=== PATIENT | male | born 1980 | race African-American/Black ===

== ENCOUNTER 2017-05-10 09:52 | Emergency (ER) | payer BC ==
[~2017-05-10] VITALS: Ht 170.2 cm; Wt 60.0 kg
[~2017-05-10 09:52] MED LIST: IBUP600T26 PO; NEUR100C PO; XANA0.5T PO
[2017-05-10 09:54] VITALS: BP 135/77; PULSE 105; RESP 20; TEMP 99.5; O2SAT 98
[2017-05-10 10:10] VITALS: PULSE 95; RESP 16; TEMP 98.9; O2SAT 96
[2017-05-10] MEDS ORDERED: GABA300C5 PO (10:11)
[2017-05-10] MEDS ORDERED: ALPR.5 PO (10:11)
--- NOTE | 2017-05-10 10:31 | PD ---
Data Data Last Documented VS Vital Signs Date Time Temp Pulse Resp B/P (MAP) Pulse Ox O2 Delivery O2 Flow Rate FiO2 05/10/17 10:10 98.9 95 16 96 Room Air MDM Supervised Visit with [facility]: Yes Narrative Course The history, exam, and medical decision-making in the associated resident provider note were completed with my assistance. I reviewed and agree with the findings presented. I attest that I had a [id number] encounter with the patient on the same day, and personally performed and documented my assessment and findings in the medical record. *My assessment and Findings: 36-year-old man with left leg erythema warmth or redness. States he fell on it yesterday. Is been draining clear fluid from a small wound on the inferior aspect of the knee. He is in pain of range of motion. On exam his superficial erythema and redness with some tenderness throughout the knee extending a few centimeters proximally and distally from the knee. There is no obvious knee effusion or evidence of arthritis. He can bend the knee. There is no calf swelling or edema or evidence of DVT. Recommend treatment for cellulitis. Diagnosis Primary Impression: Left leg cellulitis Disposition: 01 DISCHARGE HOME Condition: Stable Keaton Aguilar MD May 10, 2017 10:31
--- NOTE | 2017-05-10 10:35 | PD ---
HPI Chief Complaint: Skin Problem Time Seen by Provider: 10:10 Travel History International Travel<30 days: No Contact w/Intl Traveler<30days: No Traveled to known affect area: No History of Present Illness HPI Mr. Richard is a 36yo AAM presenting today after he fell yesterday. He states that he was walking and fell on the toilet in his knee hit the sidewalk. He states that his heart to walk. He has tried hot compresses and cleaning the wound. He states that this morning swelling started leaking out pus. He says that the pain radiates up to his thigh and down his leg to his foot. PFSH Past Medical History Autoimmune Disease: Yes (FIBROMYALGIA) Blood Disorders: No Anxiety: Yes Diminished Hearing: No Fibromyalgia: Yes Musculoskeletal: Yes (FIBROMYALGIA) Immunizations Current: Yes Tetanus Vaccination: > 5 Years Influenza Vaccination: No Past Surgical History Surgical History: No Previous Surgery Social History Alcohol Use: Yes (OCCASSIONAL 2 X PER MONTH) Tobacco Use: No Substance Use: No Allergies-Medications (Allergen,Severity, Reaction): Coded Allergies: Sulfa (Sulfonamide Antibiotics) (Unverified Allergy, Severe, HIVES, SWELLING, 05/10/17) penicillin G (Unverified Allergy, Severe, UNKNOWN, 05/10/17) Reported Meds & Prescriptions Reported Meds & Active Scripts Active Reported Gabapentin 300 Mg Cap 300 Mg PO TID Xanax (Alprazolam) 0.5 Mg Tab 0.5 Mg PO BID PRN Review of Systems General / Constitutional: No: Fever, Chills Physical Exam Narrative GENERAL: Well-nourished, well-developed patient. SKIN: Warm and dry. HEAD: Normocephalic. EYES: No scleral icterus. No injection or drainage. CARDIOVASCULAR: Regular rate and rhythm without murmurs, gallops, or rubs. RESPIRATORY: Breath sounds equal bilaterally. No accessory muscle use. EXTREMITIES: No cyanosis, or edema. Right le.5cmx0.5cm laceration leaking serosanguineous fluid. Surrounding erythema and warmth. NEUROLOGICAL: Awake, alert, and oriented x 3. Non-focal. Data Data Last Documented VS Vital Signs Date Time Temp Pulse Resp B/P (MAP) Pulse Ox O2 Delivery O2 Flow Rate FiO2 05/10/17 10:10 98.9 95 16 96 Room Air Orders Orders Wound Culture And Gram Stain (05/10/17 10:31) Ketorolac Inj (Toradol Inj) (05/10/17 10:45) MDM Medical Decision Making Medical Screen Exam Complete: Yes Emergency Medical Condition: Yes Differential Diagnosis cellulitis vs laceration vs septic arthritis Narrative Course 36yoAAM presenting to the ED after a fall resulting in a right knee laceration. Physical exam shows cellulitis. Wound cx Rx for Bactrim Toradol for pain Diagnosis Primary Impression: Left leg cellulitis Referrals: Primary Care Physician Patient Instructions: Cellulitis (ED), General Instructions Additional Instructions: Take medications as prescribed. Return if any worsening symptoms. Take probiotics with medication. Med/Other Pt SpecificInfo: Prescription(s) given Scripts Clindamycin (Clindamycin) 150 Mg Cap 150 MG PO Q6H for Infection for 7 Days, #28 CAP 0 Refills Prov: Stacy Agudelo MD R1 05/10/17 Disposition: 01 DISCHARGE HOME Condition: Stable Stacy Agudelo MD R1 May 10, 2017 10:35
[2017-05-10] MEDS ORDERED: CLIN1CAP5 PO (10:45)
[2017-05-10] MEDS ORDERED: KETOROLAC TROMETHAMINE 60 MG/2 ML (IM) VIAL IM ONE (11:00)
== END 2017-05-10 11:08 | disposition home or self-care (01) ==
LOC: NEPD 09:52
DX: L03.116 Cellulitis of left lower limb (principal); A49.02 Methicillin resistant Staphylococcus aureus infection, unspecified site; M79.7 Fibromyalgia; F41.9 Anxiety disorder, unspecified; Z79.899 Other long term (current) drug therapy; Z88.0 Allergy status to penicillin; Z88.2 Allergy status to sulfonamides
CPT/HCPCS: 86403; 87070; 87186; 96372; 99284; J1885

== ENCOUNTER 2017-05-12 19:35 | Emergency (ER) | payer BC ==
[~2017-05-12] VITALS: Ht 170.2 cm; Wt 72.4 kg
[~2017-05-12 19:35] MED LIST changes: +ALPR.5 PO; +CLIN1CAP5 PO; +GABA300C5 PO; -IBUP600T26 PO; -NEUR100C PO; -XANA0.5T PO
[2017-05-12 19:46] VITALS: BP 129/76; PULSE 89; RESP 18; TEMP 98; O2SAT 99
[2017-05-12] MEDS ORDERED: CLIN1CAP6 PO (21:35)
--- NOTE | 2017-05-12 21:37 | PD ---
HPI . Right knee pain and wound Chief Complaint: Fall Time Seen by Provider: 20:50 Travel History International Travel<30 days: No Contact w/Intl Traveler<30days: No Traveled to known affect area: No History of Present Illness HPI 36-year-old male patient presents to the emergency department for evaluation of right leg wound. Patient states he fell earlier in the shower and it opened the wound up more. There are no obvious injuries from the fall. The patient does have pain in his knee from the wound but there is no signs of trauma post fall. The patient can fully flex and extend the knee. The wound is approximately 2 cm x 2 cm, clearly infected draining pus and purulent discharge. Patient denies any fevers, chills, malaise, abdominal pain, nausea, vomiting, diarrhea or lightheadedness. The patient was seen at our facility for couple days ago and discharged home with clindamycin. The wound culture that was obtained a couple days ago was positive for MRSA. The MRSA is sensitive to clindamycin however the patient's dose is subtherapeutic at this time. Patient's only major medical history is fibromyalgia. Patient is on extensive pain medication regimen including Lortab, Xanax, gabapentin, Motrin. Patient is having frequent falls at home. Patient advised to using caution when taking the pain medications as this could be directly related to his frequent falls. PFSH Past Medical History Autoimmune Disease: Yes (FIBROMYALGIA) Blood Disorders: No Anxiety: Yes Diminished Hearing: No Fibromyalgia: Yes Musculoskeletal: Yes (FIBROMYALGIA) Immunizations Current: Yes Social History Alcohol Use: Yes (OCCASSIONAL 2 X PER MONTH) Tobacco Use: No Substance Use: No Allergies-Medications (Allergen,Severity, Reaction): Coded Allergies: penicillin G (Unverified Allergy, Severe, UNKNOWN, 05/12/17) Reported Meds & Prescriptions Reported Meds & Active Scripts Active Clindamycin (Clindamycin HCl) 300 Mg Cap 300 Mg PO Q6H 10 Days Clindamycin (Clindamycin HCl) 150 Mg Cap 150 Mg PO Q6H 7 Days Review of Systems Except as stated in HPI: all other systems reviewed are Neg Physical Exam Narrative GENERAL: Well-nourished, well-developed 36-year-old male patient in no acute distress. Nontoxic appearing. SKIN: 2 cm x 2cm right knee wound that is oozing pus and purulent drainage. Slightly edematous and erythematous. HEAD: Normocephalic. Atraumatic. EYES: No scleral icterus. No injection or drainage. NECK: Supple, trachea midline. No JVD or lymphadenopathy. CARDIOVASCULAR: Regular rate and rhythm without murmurs, gallops, or rubs. Pedal pulses +2 bilaterally. RESPIRATORY: Breath sounds equal bilaterally. No accessory muscle use. GASTROINTESTINAL: Abdomen soft, non-tender, nondistended. MUSCULOSKELETAL: No obvious deformity or effusion on the right leg. BACK: Nontender without obvious deformity. No CVA tenderness. Data Data Last Documented VS Vital Signs Date Time Temp Pulse Resp B/P (MAP) Pulse Ox O2 Delivery O2 Flow Rate FiO2 05/12/17 19:46 98.0 89 18 129/76 (93) 99 MDM Medical Decision Making Medical Screen Exam Complete: Yes Emergency Medical Condition: Yes Medical Record Reviewed: Yes Differential Diagnosis Differential diagnoses include not limited to wound infection, cellulitis, right knee contusion, sepsis Narrative Course 36-year-old male patient presents to emergency room for evaluation of wound on his right knee. The wound is currently infected oozing pus and purulent drainage. Patient denies any fevers, chills, malaise, nausea, vomiting, lightheadedness. The right knee is slightly edematous and erythematous. Patient retains full range of motion with flexion and extension. A wound culture was obtained at his last visit from that wound that grew MRSA. MRSA is susceptible to clindamycin however the patient is on a subtherapeutic level at this time. Patient will be discharged home with an increased dose of clindamycin and instructions to return to the emergency Department with any worsening infection. Diagnosis Primary Impression: Open wound of right knee Qualified Codes: S81.001A - Unspecified open wound, right knee, initial encounter Referrals: Primary Care Physician Patient Instructions: General Instructions, Wound Infection (ED) Additional Instructions: Please return to emergency department if your symptoms worsen or you have any signs or symptoms of increasing infection. Signs or symptoms of infection include redness, warmth, increasing pain and fevers. Follow up with your primary care provider. Take antibiotics as prescribed. Keep wound clean and dry. Med/Other Pt SpecificInfo: Prescription(s) given Scripts Clindamycin (Clindamycin) 300 Mg Cap 300 MG PO Q6H for Infection for 10 Days, #40 CAP 0 Refills Prov: Yesi Law 05/12/17 Disposition: 01 DISCHARGE HOME Condition: Stable Yesi Law May 12, 2017 21:37
== END 2017-05-12 22:05 | disposition home or self-care (01) ==
LOC: PHEFT 19:35
DX: S81.001A Unspecified open wound, right knee, initial encounter (principal); M79.7 Fibromyalgia; F41.9 Anxiety disorder, unspecified; W18.2XXA Fall in (into) shower or empty bathtub, initial encounter; Z79.899 Other long term (current) drug therapy; Z88.0 Allergy status to penicillin
CPT/HCPCS: 99283

== ENCOUNTER 2017-06-16 00:14 | Emergency (ER) | payer BC ==
[~2017-06-16] VITALS: Ht 170.2 cm; Wt 77.0 kg
[~2017-06-16 00:14] MED LIST changes: -ALPR.5 PO; +CLIN150C14 PO; -CLIN1CAP5 PO; +CLIN300C5 PO; -GABA300C5 PO
[2017-06-16 00:16] VITALS: BP 119/76; PULSE 84; RESP 16; TEMP 98.6; O2SAT 98
[2017-06-16] MEDS ORDERED: NEUR300C PO (00:51)
[2017-06-16] MEDS ORDERED: IBUP-232 PO (01:19)
--- NOTE | 2017-06-16 01:19 | PD ---
HPI Chief Complaint: Head Injury Time Seen by Provider: 01:00 Travel History International Travel<30 days: No Contact w/Intl Traveler<30days: No Traveled to known affect area: No History of Present Illness HPI 36-year-old male complains of headache. Patient was weight lifting and the handlebar of the weight came down and hit him on the forehead. Patient denies any loss of consciousness. Patient complains of achy headache frontal head. Patient denies any visual change. Patient denies any neck pain. Patient denies any chest pain or shortness of breath. Patient denies abdominal pain. Patient denies any focal weakness or numbness of extremity. Patient denies any other injury. Patient is on Neurontin for fibromyalgia. PFSH Past Medical History Autoimmune Disease: Yes (FIBROMYALGIA) Blood Disorders: No Anxiety: Yes Diminished Hearing: No Fibromyalgia: Yes Musculoskeletal: Yes (FIBROMYALGIA) Immunizations Current: Yes Past Surgical History Surgical History: No Previous Surgery Social History Alcohol Use: Yes (OCCASSIONAL 2 X PER MONTH) Tobacco Use: No Substance Use: No Allergies-Medications (Allergen,Severity, Reaction): Coded Allergies: penicillin G (Unverified Allergy, Severe, UNKNOWN, 06/16/17) Reported Meds & Prescriptions Reported Meds & Active Scripts Active Ibuprofen 600 Mg Tab 600 Mg PO TID Reported Neurontin (Gabapentin) 300 Mg Cap 300 Mg PO TID Review of Systems General / Constitutional: No: Fever Eyes: No: Visual changes HENT: Positive: Headaches Cardiovascular: No: Chest Pain or Discomfort Respiratory: No: Shortness of Breath Gastrointestinal: No: Abdominal Pain Genitourinary: No: Dysuria Musculoskeletal: No: Pain Skin: No Rash Neurologic: No: Weakness Psychiatric: No: Depression Endocrine: No: Polydipsia Hematologic/Lymphatic: No: Easy Bruising Physical Exam Narrative GENERAL: Well-nourished, well-developed patient. SKIN: Focused skin assessment warm/dry. HEAD: Normocephalic. EYES: No scleral icterus. No injection or drainage. Pupils 2 mm equal reactive. NECK: Supple, trachea midline. No JVD or lymphadenopathy. CARDIOVASCULAR: Regular rate and rhythm without murmurs, gallops, or rubs. RESPIRATORY: Breath sounds equal bilaterally. No accessory muscle use. GASTROINTESTINAL: Abdomen soft, non-tender, nondistended. MUSCULOSKELETAL: No cyanosis, or edema. BACK: Nontender without obvious deformity. No CVA tenderness. Neurologic exam normal. Data Data Last Documented VS Vital Signs Date Time Temp Pulse Resp B/P (MAP) Pulse Ox O2 Delivery O2 Flow Rate FiO2 06/16/17 00:16 98.6 84 16 119/76 (90) 98 Room Air Orders Orders Ct Brain W/O Iv Contrast(Rout) (06/16/17 01:12) Ed Discharge Order (06/16/17 03:01) MDM Medical Decision Making Medical Screen Exam Complete: Yes Emergency Medical Condition: Yes Interpretation(s) [address] scan of brain negative acute pathology. Differential Diagnosis Differential diagnosis including contusion, concussion, skull fracture, intracranial hemorrhage. Narrative Course 36-year-old male complains of headache after being struck with the handlebar of the weight lifting equipment. Diagnosis Primary Impression: Closed head injury Qualified Codes: S09.90XA - Unspecified injury of head, initial encounter Patient Instructions: General Instructions Additional Instructions: Head trauma instructions given. Ibuprofen as needed for headache. Follow-up with personal physician. Return if worse. Med/Other Pt SpecificInfo: Prescription(s) given Scripts Ibuprofen (Ibuprofen) 600 Mg Tab 600 MG PO TID for Headaches, #30 TAB 0 Refills Prov: Zack Croft MD 06/16/17 Disposition: 01 DISCHARGE HOME Condition: Stable Zack Croft MD Jun 16, 2017 01:19
--- NOTE | 2017-06-16 03:00 | RADRPT ---
EXAM DATE/TIME: 06/16/2017 01:48 [facility] COMPARISON: No previous studies available for comparison. INDICATIONS : Trauma, patient hit in head with weight bar. Cephalgia. RADIATION DOSE: 56.35 CTDIvol (mGy) MEDICAL HISTORY : None SURGICAL HISTORY : None. ENCOUNTER: Initial ACUITY: 1 day PAIN SCALE: 9/10 LOCATION: cranial TECHNIQUE: Multiple contiguous axial images were obtained of the head. Using automated exposure control and adj ustment of the mA and/or kV according to patient size, radiation dose was kept as low as reasonably a chievable to obtain optimal diagnostic quality images. DICOM format image data is available electro nically for review and comparison. FINDINGS: CEREBRUM: The ventricles are normal for age. No evidence of midline shift, mass lesion, hemorrhage or acute in farction. No extra-axial fluid collections are seen. POSTERIOR FOSSA: The cerebellum and brainstem are intact. The 4th ventricle is midline. The cerebellopontine angle i s unremarkable. EXTRACRANIAL: The visualized portion of the orbits is intact. SKULL: The calvaria is intact. No evidence of skull fracture. CONCLUSION: 1. No evidence of acute intracranial pathology. No masses are identified. Tab Bird MD on June 16, 2017 at 2:58 Board Certified Radiologist. This report was verified electronically.
== END 2017-06-16 03:08 | disposition home or self-care (01) ==
LOC: NEPE 00:14
DX: S09.90XA Unspecified injury of head, initial encounter (principal); M79.7 Fibromyalgia; F41.9 Anxiety disorder, unspecified; W22.8XXA Striking against or struck by other objects, initial encounter; Y93.B3 Activity, free weights; Z88.0 Allergy status to penicillin; Z79.1 Long term (current) use of non-steroidal anti-inflammatories (NSAID); Z79.899 Other long term (current) drug therapy
CPT/HCPCS: 70450; 99284

== ENCOUNTER 2017-07-05 20:22 | Emergency (ER) | payer BC ==
[~2017-07-05] VITALS: Ht 170.2 cm; Wt 72.2 kg
[~2017-07-05 20:22] MED LIST changes: -CLIN150C14 PO; -CLIN300C5 PO; +IBUP-232 PO; +NEUR300C PO
[2017-07-05 20:27] VITALS: BP 122/75; PULSE 98; RESP 18; TEMP 99; O2SAT 98
[2017-07-05 20:41] VITALS: BP 119/76; PULSE 87; O2SAT 98
[2017-07-05] MEDS ORDERED: ONDANSETRON ODT 4 MG TAB PO ONE (20:45)
--- NOTE | 2017-07-05 20:47 | PD ---
HPI Chief Complaint: Head Injury Time Seen by Provider: 20:40 Travel History International Travel<30 days: No Contact w/Intl Traveler<30days: No Traveled to known affect area: No History of Present Illness HPI 36-year-old male presents to the emergency department by private transportation for complaint of headache since being hit in the head earlier today around 10 AM by a basketball. Patient states she was actively playing basketball and the ball struck him in the head knocking him to the ground. Patient states she did not hit his head on the ground did not have loss of consciousness did not injure his neck or his back. Patient does not report any new numbness tingling or weakness of the upper extremities or lower extremity. No report of bladder or bowel dysfunction. No report of ataxia of gait. Patient states he was stunned when he was first hit in the head with a basketball. Patient states that he's had nausea throughout the day. Patient did take a one-time dose of ibuprofen without symptom relief. Patient's had no vomiting. Patient denies other concerns or complaints. No reported recent respiratory illness or febrile illness. Patient states he takes medication for fibromyalgia but does not report any new back pain or back injury or extremity symptoms. The patient rates his head pain 10 over 10 in intensity. PFSH Past Medical History Narrative Medical Fibromyalgia chronic low back pain anxiety; no tobacco use, alcohol use; nursing notes reviewed Autoimmune Disease: Yes (FIBROMYALGIA) Blood Disorders: No Anxiety: Yes Diminished Hearing: No Fibromyalgia: Yes Musculoskeletal: Yes (FIBROMYALGIA) Immunizations Current: Yes Social History Alcohol Use: Yes (OCCASSIONAL 2 X PER MONTH) Tobacco Use: No Substance Use: No Allergies-Medications (Allergen,Severity, Reaction): Coded Allergies: penicillin G (Unverified Allergy, Severe, UNKNOWN, 07/05/17) Reported Meds & Prescriptions Reported Meds & Active Scripts Active Ibuprofen 600 Mg Tab 600 Mg PO TID Reported Neurontin (Gabapentin) 300 Mg Cap 300 Mg PO TID Review of Systems Except as stated in HPI: all other systems reviewed are Neg General / Constitutional: No: Fever, Chills Eyes: No: Diploplia, Blurred Vision, Photophobia HENT: Positive: Headaches, Lightheadedness, No: Neck Stiffness, Neck Pain Cardiovascular: No: Chest Pain or Discomfort Respiratory: No: Shortness of Breath Gastrointestinal: Positive: Nausea, No: Vomiting, Abdominal Pain Genitourinary: No: Flank Pain Musculoskeletal: No: Myalgias, Arthralgias Skin: No Rash Neurologic: Positive: Headache, No: Weakness, Dizziness, Syncope, Focal Abnormalities, Coordination Problem, Change in Mentation, Slurred Speech Psychiatric: No: Anxiety Hematologic/Lymphatic: No: Lymph Node Enlargement Physical Exam Narrative GENERAL: Well-developed well-nourished male in no acute distress no respiratory distress; GCS 15 SKIN: Warm and dry. HEAD: Atraumatic. Normocephalic. No forehead soft tissue swelling abrasion ecchymosis or imprinting of basketball markings. EYES: Pupils equal and round. Extraocular muscles intact. No periorbital rim tenderness or ecchymosis. No scleral icterus. No injection or drainage. ENT: No nasal bleeding or discharge. Mucous membranes pink and moist. Airway is patent. No hemotympanum. NECK: Trachea midline. No JVD. No midline tenderness to direct palpation along the cervical spine and no bony step-off. No paracervical musculature spasm or tenderness. CARDIOVASCULAR: Regular rate and rhythm. RESPIRATORY: No accessory muscle use. Clear to auscultation. Breath sounds equal bilaterally. GASTROINTESTINAL: Abdomen soft, non-tender, nondistended. Hepatic and splenic margins not palpable. MUSCULOSKELETAL: Extremities without clubbing, cyanosis, or edema. No obvious deformities. NEUROLOGICAL: Awake and alert. GCS 15. No obvious cranial nerve deficits. Motor grossly within normal limits. Five out of 5 muscle strength in the arms and legs. Sensory exam intact. DTRs 2+ and equal bilateral upper extremity lower extremities. Normal speech. PSYCHIATRIC: Appropriate mood and affect; insight and judgment normal. Data Data Last Documented VS Vital Signs Date Time Temp Pulse Resp B/P (MAP) Pulse Ox O2 Delivery O2 Flow Rate FiO2 07/05/17 20:41 87 119/76 (90) 98 Room Air 07/05/17 20:27 99.0 18 Orders Orders Ondansetron Odt (Zofran Odt) (07/05/17 20:45) Ct Brain W/O Iv Contrast(Rout) (07/05/17 ) MDM Medical Decision Making Medical Screen Exam Complete: Yes Emergency Medical Condition: Yes Medical Record Reviewed: Yes (evaluated 06/16/17 head injury from weight lifting --CT brain w/o: "negative") Interpretation(s) CT brain w/o: FINDINGS: CEREBRUM: The ventricles are normal for age. No evidence of midline shift, mass lesion, hemorrhage or acute infarction. No extra-axial fluid collections are seen. POSTERIOR FOSSA: The cerebellum and brainstem are intact. The 4th ventricle is midline. The cerebellopontine angle is unremarkable. EXTRACRANIAL: The visualized portion of the orbits is intact. SKULL: The calvaria is intact. No evidence of skull fracture. CONCLUSION: Negative exam. Mike Bell MD on July 05, 2017 at 21:03 Board Certified Radiologist. This report was verified electronically. Differential Diagnosis Contusion, ICH, CHI, concussion, skull fracture, viral syndrome Narrative Course 36-year-old male presents 10 hours after being hit in the head with a basketball without loss of consciousness or secondary head injury from fall without neck or extremity numbness tingling or weakness. Patient does present with complaint of nausea and administered Zofran ODT 4 mg times one dose and a CT brain noncontrast has been ordered. @ 9:11 PM patient reports that his headache and nausea have improved significantly after Zofran ODT 4 mg times one dose; patient has been informed of his CT brain noncontrast imaging using results revealing no acute process. Patient is stable for outpatient management and will be provided prescription for Zofran take as needed for nausea. Patient is encouraged to follow closed head injury precautions 24 hours. Patient is encouraged to take increase fluid hydration and is tolerating oral hydration here in the emergency department without nausea and/or vomiting or worsening headache pain. Patient admits to poor oral intake today as he did not feel well. Patient may have some mild dehydration due to decreased oral intake today. Diagnosis Primary Impression: Closed head injury Qualified Codes: S09.90XA - Unspecified injury of head, initial encounter Referrals: Primary Care Physician 2 days Patient Instructions: General Instructions Departure Forms: Tests/Procedures, Work Release Special Instructions: no work x 1 day Additional Instructions: Increase fluid hydration Follow head injury precautions 24 hours No work times one day Takes Zofran as prescribed as needed for nausea and/or vomiting May take ibuprofen/Advil/Motrin 600 mg as often as every 6 hours or up to 800 mg as often as every 8 hours avoid prolonged high-dose ibuprofen use on a routine basis Return to the emergency department for any concerns or change in condition Follow up with your primary care provider call office in a.m. to schedule follow -up appointment Med/Other Pt SpecificInfo: Prescription(s) given Scripts Ondansetron Odt (Zofran Odt) 4 Mg Tab 4 MG SL Q6HR Y for Nausea/Vomiting, #7 TAB 0 Refills Prov: Tanja Sims MD 07/05/17 Disposition: 01 DISCHARGE HOME Condition: Stable Tanja Sims MD Jul 05, 2017 20:47
--- NOTE | 2017-07-05 21:08 | RADRPT ---
EXAM DATE/TIME: 07/05/2017 20:46 [facility] COMPARISON: CT BRAIN W/O CONTRAST, June 16, 2017, 1:48. INDICATIONS : Trauma, hit in head with basketball. RADIATION DOSE: 65.94 CTDIvol (mGy) MEDICAL HISTORY : None SURGICAL HISTORY : None. ENCOUNTER: Initial ACUITY: 1 day PAIN SCALE: 10/10 LOCATION: cranial TECHNIQUE: Multiple contiguous axial images were obtained of the head. Using automated exposure control and adj ustment of the mA and/or kV according to patient size, radiation dose was kept as low as reasonably a chievable to obtain optimal diagnostic quality images. DICOM format image data is available electro nically for review and comparison. FINDINGS: CEREBRUM: The ventricles are normal for age. No evidence of midline shift, mass lesion, hemorrhage or acute in farction. No extra-axial fluid collections are seen. POSTERIOR FOSSA: The cerebellum and brainstem are intact. The 4th ventricle is midline. The cerebellopontine angle i s unremarkable. EXTRACRANIAL: The visualized portion of the orbits is intact. SKULL: The calvaria is intact. No evidence of skull fracture. CONCLUSION: Negative exam. Mike Bell MD on July 05, 2017 at 21:03 Board Certified Radiologist. This report was verified electronically.
[2017-07-05 21:12] VITALS: RESP 16; TEMP 98.6; O2SAT 97
[2017-07-05] MEDS ORDERED: ZOFR4TAB3 SL (21:14)
== END 2017-07-05 21:30 | disposition home or self-care (01) ==
LOC: PHED 20:22
DX: S09.90XA Unspecified injury of head, initial encounter (principal); W21.05XA Struck by basketball, initial encounter; Y93.67 Activity, basketball
CPT/HCPCS: 70450; 99284

== ENCOUNTER 2017-07-13 18:16 | Emergency (ER) | payer OTHER, BC ==
[~2017-07-13] VITALS: Ht 170.2 cm; Wt 73.6 kg
[~2017-07-13 18:16] MED LIST changes: +ZOFR4TAB3 SL
[2017-07-13 18:28] VITALS: BP 117/68; PULSE 81; RESP 16; TEMP 98.5; O2SAT 99
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
[2017-07-13] MEDS ORDERED: ACETAMINOPHEN 325 MG TAB PO ONE (19:30)
[2017-07-13] MEDS ORDERED: IBUPROFEN 800 MG TAB PO ONE (19:30)
[2017-07-13] MEDS ORDERED: IBUP1TAB7 PO (19:35)
[2017-07-13] MEDS ORDERED: CYCL10TA PO (19:35)
== END 2017-07-13 19:48 | disposition home or self-care (01) ==
LOC: PHEFT 18:16
DX: S16.1XXA Strain of muscle, fascia and tendon at neck level, initial encounter (principal); S39.012A Strain of muscle, fascia and tendon of lower back, initial encounter; V43.52XA Car driver injured in collision with other type car in traffic accident, initial encounter
CPT/HCPCS: 70450; 72110; 72125; 99285

== ENCOUNTER 2017-08-29 19:56 | Emergency (ER) | payer BC, OTHER ==
[~2017-08-29 19:56] MED LIST changes: +CYCL10TA PO; -IBUP-232 PO; +IBUP1TAB7 PO; -NEUR300C PO; -ZOFR4TAB3 SL
[2017-08-29 20:31] VITALS: BP 114/67; PULSE 74; RESP 20; TEMP 98.1; O2SAT 98
[2017-08-29] MEDS ORDERED: NEUR100C PO (22:11)
[2017-08-29] MEDS ORDERED: diphenhydrAMINE HCL 50 MG CAP PO ONE (22:15)
[2017-08-29] MEDS ORDERED: EPIP0.3I IM (22:38)
--- NOTE | 2017-08-29 22:39 | PD ---
HPI . Wasp sting Chief Complaint: Bite or Sting Time Seen by Provider: 22:08 Travel History International Travel<30 days: No Contact w/Intl Traveler<30days: No Traveled to known affect area: No History of Present Illness HPI This patient presents status post a wasp sting to his right upper arm. Onset was this morning. He subsequently developed diffuse hives. He rates his symptoms at 4/10. There are no associated symptoms. There has been no treatment prior to arrival. However, his symptoms are spontaneously improving. PFSH Past Medical History Autoimmune Disease: Yes (FIBROMYALGIA) Blood Disorders: No Anxiety: Yes Diminished Hearing: No Fibromyalgia: Yes Musculoskeletal: Yes (FIBROMYALGIA) Immunizations Current: Yes Tetanus Vaccination: < 5 Years Influenza Vaccination: Yes Past Surgical History Surgical History: No Previous Surgery Social History Alcohol Use: No Tobacco Use: No Substance Use: No Allergies-Medications (Allergen,Severity, Reaction): Coded Allergies: penicillin G (Verified Allergy, Severe, UNKNOWN, 08/29/17) pt states does not have a allergy to this medication , Jfoley 07/13/17 Reported Meds & Prescriptions Reported Meds & Active Scripts Active Reported Neurontin (Gabapentin) 100 Mg Cap Unknown Dose PO BID Review of Systems Except as stated in HPI: all other systems reviewed are Neg Respiratory: No: Shortness of Breath Gastrointestinal: No: Nausea, Vomiting Skin: Positive Rash, Positive Itching Physical Exam Narrative GENERAL: Awake and alert and in no acute distress. SKIN: Warm and dry. He has a very faint urticarial rash scattered over his upper extremities and back. I did not take off his close look at the rest of his body. HEAD: Normocephalic/atraumatic. EYES: Pupils are equal. Extraocular movements are intact. NECK: Normal range of motion. CARDIOVASCULAR: Regular rate and rhythm. RESPIRATORY: Nonlabored respirations. MUSCULOSKELETAL: Atraumatic. NEUROLOGICAL: Nonfocal. PSYCHIATRIC: Appropriate mood and affect. Data Data Last Documented VS Vital Signs Date Time Temp Pulse Resp B/P (MAP) Pulse Ox O2 Delivery O2 Flow Rate FiO2 08/29/17 20:31 98.1 74 20 114/67 (83) 98 Orders Orders Diphenhydramine (Benadryl) (08/29/17 22:15) MDM Medical Decision Making Medical Screen Exam Complete: Yes Emergency Medical Condition: Yes Differential Diagnosis The differential diagnosis of the skin rash includes but is not limited to allergic urticaria, scabies, insect bites, contact dermatitis Narrative Course This patient presents with a diffuse urticarial rash which started after being stung by a wasp. He will be treated with Benadryl. He will be discharged with instructions to keep Benadryl on hand. As this is a systemic reaction to a wasp sting, he will be given a prescription for EpiPen. I do not believe that he needs a shot of epinephrine currently but his next reaction is likely to be worse. Diagnosis Primary Impression: Hives Patient Instructions: General Instructions, Urticaria (ED) Additional Instructions: Keep Benadryl on hand and take 2 every 4 hours as needed for rash. If you are stung by a wasp in the future and developed a diffuse rash, take Benadryl. If symptoms are severe, use EpiPen and come to the hospital. Med/Other Pt SpecificInfo: Prescription(s) given Scripts Epinephrine Inj (Epipen 2-Lyle Inj) 0.3 Mg/0.3 Ml Pfpen 0.3 MG IM ONCE Y for ALLERGIC REACTION, #1 PACK 0 Refills Prov: Rena Araya MD 08/29/17 Disposition: DISCHARGE HOME Condition: Stable Rena Araya MD Aug 29, 2017 22:39
== END 2017-08-29 23:00 | disposition home or self-care (01) ==
LOC: PHEFT 19:56
DX: L50.9 Urticaria, unspecified (principal)
CPT/HCPCS: 99283; Q0163

== ENCOUNTER 2017-09-18 08:47 | Emergency (ER) | payer BC ==
[~2017-09-18] VITALS: Ht 170.2 cm; Wt 75.0 kg
[~2017-09-18 08:47] MED LIST changes: -CYCL10TA PO; +EPIP0.3I IM; -IBUP1TAB7 PO; +NEUR100C PO
[2017-09-18 08:59] VITALS: BP 117/66; PULSE 71; RESP 16; TEMP 98.2; O2SAT 99
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
[2017-09-18] MEDS ORDERED: IBUPROFEN 800 MG TAB PO ONE (09:15)
== END 2017-09-18 09:58 | disposition home or self-care (01) ==
LOC: PHEFT 08:47
DX: M79.621 Pain in right upper arm (principal); M79.7 Fibromyalgia; Z86.59 Personal history of other mental and behavioral disorders; X58.XXXA Exposure to other specified factors, initial encounter; Y93.K1 Activity, walking an animal
CPT/HCPCS: 99283

== ENCOUNTER 2017-09-24 13:06 | Emergency (ER) | payer BC ==
[~2017-09-24] VITALS: Ht 170.2 cm; Wt 76.0 kg
[~2017-09-24 13:06] MED LIST changes: -NEUR100C PO
[2017-09-24 13:13] VITALS: BP 126/59; PULSE 87; RESP 16; TEMP 98.5; O2SAT 99
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
[2017-09-24] MEDS ORDERED: NEUR100C PO (13:26)
[2017-09-24] MEDS ORDERED: SODIUM CHLOR 0.9% 1000 ML INJ 1,000 ML IV ONE (13:39)
[2017-09-24] MEDS ORDERED: PROCHLORPERAZINE INJ 10 MG/2 ML VIAL IVP ONE (13:45)
[2017-09-24] MEDS ORDERED: SODIUM CHLORIDE 0.9% FLUSH 10 ML FLUSH IVF PRN (13:45)
--- NOTE | 2017-09-24 14:28 | RADRPT ---
EXAM DATE/TIME: 09/24/2017 14:08 [facility] COMPARISON: CT BRAIN W/O CONTRAST, July 13, 2017, 18:51. INDICATIONS : Frontal headache. RADIATION DOSE: 66.07 CTDIvol (mGy) MEDICAL HISTORY : None SURGICAL HISTORY : None. ENCOUNTER: Initial ACUITY: 1 day PAIN SCALE: 5/10 LOCATION: frontal TECHNIQUE: Multiple contiguous axial images were obtained of the head. Using automated exposure control and adj ustment of the mA and/or kV according to patient size, radiation dose was kept as low as reasonably a chievable to obtain optimal diagnostic quality images. DICOM format image data is available electro nically for review and comparison. FINDINGS: CEREBRUM: The ventricles are normal for age. No evidence of midline shift, mass lesion, hemorrhage or acute in farction. No extra-axial fluid collections are seen. POSTERIOR FOSSA: The cerebellum and brainstem are intact. The 4th ventricle is midline. The cerebellopontine angle i s unremarkable. EXTRACRANIAL: The visualized portion of the orbits is intact. SKULL: The calvaria is intact. No evidence of skull fracture. CONCLUSION: Normal examination. Keaton Rivas MD on September 24, 2017 at 14:26 Board Certified Radiologist. This report was verified electronically.
[2017-09-24 14:42] VITALS: RESP 16; O2SAT 98
[2017-09-24] MEDS ORDERED: BUTA1CAP PO (14:43)
[2017-09-24 15:15] VITALS: BP 116/79
== END 2017-09-24 15:17 | disposition home or self-care (01) ==
LOC: PHED 13:06
DX: F07.81 Postconcussional syndrome (principal); G44.309 Post-traumatic headache, unspecified, not intractable; M79.7 Fibromyalgia; F41.9 Anxiety disorder, unspecified; Z79.899 Other long term (current) drug therapy; Z88.0 Allergy status to penicillin
CPT/HCPCS: 70450; 96374; 99284; J0780; J7030

== ENCOUNTER 2017-12-14 09:57 | Emergency (ER) | payer BC ==
[~2017-12-14] VITALS: Ht 170.2 cm; Wt 74.5 kg
[~2017-12-14 09:57] MED LIST changes: +BUTA1CAP PO; +NEUR100C PO
[2017-12-14 10:03] VITALS: BP 126/61; PULSE 74; RESP 18; TEMP 99; O2SAT 99
--- NOTE | 2017-12-14 11:06 | PD ---
HPI Chief Complaint: Bite or Sting Time Seen by Provider: 10:35 Travel History International Travel<30 days: No Contact w/Intl Traveler<30days: No Traveled to known affect area: No History of Present Illness HPI 37-year-old male presents emergency department for evaluation of right arm pain after being stung by a bee yesterday. Patient states that he is allergic to bees. Patient says yesterday he developed subjective fevers and chills, headache, general malaise. Says these symptoms are resolved now and is concerned about right arm pain. He denies any nausea vomiting diarrhea. Denies any shortness of breath. He has no other complaints today other than the pain in the right arm. He also requests a refill of his EpiPen. PFSH Past Medical History Hx Anticoagulant Therapy: No Autoimmune Disease: Yes (FIBROMYALGIA) Blood Disorders: No Anxiety: Yes Diabetes: No Diminished Hearing: No Fibromyalgia: Yes Musculoskeletal: Yes (FIBROMYALGIA) Immunizations Current: Yes ?: Not Past Surgical History Surgical History: No Previous Surgery Social History Alcohol Use: No Tobacco Use: No Substance Use: No Allergies-Medications (Allergen,Severity, Reaction): Coded Allergies: penicillin G (Verified Allergy, Severe, UNKNOWN, 12/14/17) pt states does not have a allergy to this medication , Jfoley 07/13/17 Reported Meds & Prescriptions Reported Meds & Active Scripts Active Prednisone 20 Mg Tab 20 Mg PO DAILY 5 Days Epipen 2-Lyle Inj (Epinephrine) 0.3 Mg/0.3 Ml Pfpen 0.3 Mg IM ONCE PRN Reported Neurontin (Gabapentin) 100 Mg Cap 300 PO BID Review of Systems Except as stated in HPI: all other systems reviewed are Neg Physical Exam Narrative GENERAL: Well developed, well-nourished no apparent distress SKIN: Warm and dry. left upper extremity-No evidence of bee sting, erythema, edema. Tenderness to palpation of the right deltoid where patient states he was stung. HEAD: Normocephalic. EYES: No scleral icterus. No injection or drainage. NECK: Supple, trachea midline. No JVD or lymphadenopathy. CARDIOVASCULAR: Regular rate and rhythm without murmurs, gallops, or rubs. RESPIRATORY: Breath sounds equal bilaterally. No accessory muscle use. No wheezes, rales or rhonchi GASTROINTESTINAL: Abdomen soft, non-tender, nondistended. MUSCULOSKELETAL: No cyanosis, or edema. BACK: Nontender without obvious deformity. No CVA tenderness. Data Data Last Documented VS Vital Signs Date Time Temp Pulse Resp B/P (MAP) Pulse Ox O2 Delivery O2 Flow Rate FiO2 12/14/17 10:03 99.0 74 18 126/61 (82) 99 Orders Orders Ed Discharge Order (12/14/17 11:14) MDM Medical Decision Making Medical Screen Exam Complete: Yes Emergency Medical Condition: Yes Differential Diagnosis Right arm bee sting, anaphylaxis, allergic reaction, malingering Narrative Course 37-year-old male presents emergency department for evaluation of right arm pain after being stung by a bee yesterday. Patient states that he is allergic to bees. Patient says yesterday he developed subjective fevers and chills, headache, general malaise. Says these symptoms are resolved now and is concerned about right arm pain. He denies any nausea vomiting diarrhea. Denies any shortness of breath. He has no other complaints today other than the pain in the right arm. He also requests a refill of his EpiPen. Vital signs stable. His exam findings essentially unremarkable except for some mild tenderness to palpation of the right bicep. No evidence of erythema or edema. Neurovascularly intact right upper extremity Because of patient's history of bee sting allergies and complaints he was concerned about yesterday, will prescribe prednisone for use as an outpatient. I do not believe he needs any of this medication while in the emergency department today. Advised that he should follow-up with [facility] for his regular health care. Return to the emergency department for worsening or persistent symptoms. Diagnosis Primary Impression: Bee sting reaction Qualified Codes: T63.444A - Toxic effect of venom of bees, undetermined, initial encounter Referrals: [facility] Additional Instructions: You should follow-up with [facility] for your healthcare to avoid complications and your future health care. This is the most appropriate place for your regular health. Scripts Prednisone (Prednisone) 20 Mg Tab 20 MG PO DAILY for 5 Days, #5 TAB 0 Refills Prov: Lee Vasquez MD 12/14/17 Epinephrine Inj (Epipen 2-Lyle Inj) 0.3 Mg/0.3 Ml Pfpen 0.3 MG IM ONCE Y for ALLERGIC REACTION, #1 PACK 0 Refills Prov: Lee Vasquez MD 12/14/17 Disposition: 01 DISCHARGE HOME Condition: Stable Emi Ballesteros December 14, 2017 11:06
[2017-12-14] MEDS ORDERED: EPIP0.3I IM (11:12)
[2017-12-14] MEDS ORDERED: PRED20 PO (11:12)
== END 2017-12-14 11:19 | disposition home or self-care (01) ==
LOC: PHEFT 09:57
DX: T63.441A Toxic effect of venom of bees, accidental (unintentional), initial encounter (principal); R50.9 Fever, unspecified; R51 Headache; R53.81 Other malaise; M79.7 Fibromyalgia; F41.9 Anxiety disorder, unspecified; Z88.0 Allergy status to penicillin; Z79.899 Other long term (current) drug therapy
CPT/HCPCS: 99283